=== PATIENT | male | born 1975 | race Caucasian/White ===

== ENCOUNTER → 2017-01-21 | Outpatient (CLI) | payer MEDICAID ==
[~2017-01-21] VITALS: Ht 180.3 cm; Wt 82.1 kg
[~2017-01-21] MED LIST: CEFU250T87 PO; CLIN-77 PO; CLINDAMYCIN PO; CLOT30CR23 TP; CLOTRIMAZOLE 1% 15 GM CREAM TP ONE; INSLAN SQ; LANTUS SQ; [UNRECOGNIZED DRUG - OTHER] PO
[2017-01-21 14:43] VITALS: BP 125/72
== END | disposition home or self-care (01) ==
LOC: HBOWC 13:53
PROVIDERS: ATTEND Emergency Medicine
DX: L02.414 Cutaneous abscess of left upper limb (principal); E11.9 Type 2 diabetes mellitus without complications; F32.9 Major depressive disorder, single episode, unspecified; F41.9 Anxiety disorder, unspecified; F11.10 Opioid abuse, uncomplicated; F17.200 Nicotine dependence, unspecified, uncomplicated; S81.802A Unspecified open wound, left lower leg, initial encounter; X58.XXXA Exposure to other specified factors, initial encounter; Y93.89 Activity, other specified; Y92.89 Other specified places as the place of occurrence of the external cause; Y99.8 Other external cause status
CPT/HCPCS: 97597; G0463

== ENCOUNTER → 2017-01-28 | Outpatient (CLI) | payer MEDICAID ==
[~2017-01-28] MED LIST changes: -CLINDAMYCIN PO; -CLOTRIMAZOLE 1% 15 GM CREAM TP ONE; -LANTUS SQ; -[UNRECOGNIZED DRUG - OTHER] PO
[2017-01-28 15:02] VITALS: BP 122/74
== END | disposition home or self-care (01) ==
LOC: HBOWC 14:26
PROVIDERS: ATTEND Emergency Medicine
DX: L02.414 Cutaneous abscess of left upper limb (principal); F41.9 Anxiety disorder, unspecified; F32.9 Major depressive disorder, single episode, unspecified; E11.69 Type 2 diabetes mellitus with other specified complication; B19.20 Unspecified viral hepatitis C without hepatic coma; F11.10 Opioid abuse, uncomplicated; F17.210 Nicotine dependence, cigarettes, uncomplicated; F19.20 Other psychoactive substance dependence, uncomplicated
CPT/HCPCS: 97597

== ENCOUNTER → 2017-02-04 | Outpatient (CLI) | payer MEDICAID ==
[2017-02-04 13:54] VITALS: BP 109/65
== END | disposition home or self-care (01) ==
LOC: HBOWC 13:41
PROVIDERS: ATTEND Emergency Medicine
DX: T81.89XD Other complications of procedures, not elsewhere classified, subsequent encounter (principal); E11.622 Type 2 diabetes mellitus with other skin ulcer; L97.821 Non-pressure chronic ulcer of other part of left lower leg limited to breakdown of skin; B19.20 Unspecified viral hepatitis C without hepatic coma; F41.9 Anxiety disorder, unspecified; F32.9 Major depressive disorder, single episode, unspecified; F17.210 Nicotine dependence, cigarettes, uncomplicated; F11.10 Opioid abuse, uncomplicated; Y83.8 Other surgical procedures as the cause of abnormal reaction of the patient, or of later complication, without mention of misadventure at the time of the procedure
CPT/HCPCS: 97597

== ENCOUNTER 2017-11-26 14:34 | Emergency (ER) | payer MEDICAID ==
[~2017-11-26] VITALS: Ht 177.8 cm; Wt 95.5 kg
[~2017-11-26 14:34] MED LIST changes: -CLIN-77 PO; +CLIN150C9 PO
[2017-11-26] MEDS ORDERED: METF500T6 PO (14:52)
[2017-11-26] MEDS ORDERED: SIMV-259 PO (14:52)
[2017-11-26 14:53] LABS: GLUCOSE,POINT OF CARE 385 MG/DL (70-110)
[2017-11-26] MEDS ORDERED: CEPHALEXIN MONOHYDRATE 500 MG CAPSULE PO ONE (17:00)
[2017-11-26] MEDS ORDERED: SULFAMETHOX/TRIMETH DS 800-160 MG/TABLET PO ONE (17:00)
[2017-11-26 17:46] VITALS: BP 106/70
== END 2017-11-26 17:49 | disposition home or self-care (01) ==
LOC: EMS 14:34
DX: L02.31 Cutaneous abscess of buttock (principal); E11.65 Type 2 diabetes mellitus with hyperglycemia; L03.317 Cellulitis of buttock; F17.210 Nicotine dependence, cigarettes, uncomplicated; Z79.4 Long term (current) use of insulin
CPT/HCPCS: 99283; 99406

== ENCOUNTER 2017-12-24 21:00 | Emergency (ER) | payer MEDICAID ==
[~2017-12-24] VITALS: Ht 177.8 cm; Wt 95.5 kg
[~2017-12-24 21:00] MED LIST changes: -CEFU250T87 PO; -CLIN150C9 PO; -CLOT30CR23 TP; +METF500T6 PO; +SIMV-259 PO
[2017-12-24 21:14] LABS: GLUCOSE,POINT OF CARE 210 MG/DL (70-110)
[2017-12-24] MEDS ORDERED: IBUPROFEN 800 MG TABLET PO ONE (22:15)
[2017-12-24] MEDS ORDERED: PERTUSS(ACELL),DIPH,TET VAC/PF 0.5 ML VIAL IM ONE (22:15)
[2017-12-24 23:02] VITALS: BP 145/95
== END 2017-12-24 23:04 | disposition home or self-care (01) ==
LOC: EMS 21:02
DX: S61.011A Laceration without foreign body of right thumb without damage to nail, initial encounter (principal); R03.0 Elevated blood-pressure reading, without diagnosis of hypertension; E11.9 Type 2 diabetes mellitus without complications; E78.00 Pure hypercholesterolemia, unspecified; F17.210 Nicotine dependence, cigarettes, uncomplicated; W45.8XXA Other foreign body or object entering through skin, initial encounter; Y93.89 Activity, other specified; Y92.89 Other specified places as the place of occurrence of the external cause; Y99.8 Other external cause status
CPT/HCPCS: 90471; 90715; 99284

== ENCOUNTER → 2018-03-06 | Emergency (ER) | payer MEDICAID ==
[~2018-03-06] VITALS: Ht 180.3 cm; Wt 90.5 kg
[~2018-03-06] MED LIST changes: +METF-960 PO; -METF500T6 PO
[2018-03-06 13:49] LABS: GLUCOSE,POINT OF CARE 279 MG/DL (70-110)
[2018-03-06 15:21] VITALS: BP 147/87
== END | disposition home or self-care (01) ==
LOC: EMS 13:32
DX: L02.414 Cutaneous abscess of left upper limb (principal); L03.114 Cellulitis of left upper limb; F15.10 Other stimulant abuse, uncomplicated; E11.9 Type 2 diabetes mellitus without complications; E78.00 Pure hypercholesterolemia, unspecified; F17.210 Nicotine dependence, cigarettes, uncomplicated; F11.90 Opioid use, unspecified, uncomplicated; Z79.84 Long term (current) use of oral hypoglycemic drugs; Z79.4 Long term (current) use of insulin
CPT/HCPCS: 99283

== ENCOUNTER 2018-11-03 19:39 | Emergency (ER) | payer MEDICAID ==
[~2018-11-03] VITALS: Ht 175.3 cm; Wt 86.4 kg
[2018-11-03 20:24] LABS: GLUCOSE,POINT OF CARE 336 MG/DL (70-110)
[2018-11-03 20:49] VITALS: BP 142/86
[2018-11-03] MEDS ORDERED: LIDOCAINE/PF 1% 2 ML VIAL IM ONE (21:00)
[2018-11-03] MEDS ORDERED: KETOROLAC TROMETHAMINE 60 MG/2 ML VIAL IM ONE (21:00)
[2018-11-03] MEDS ORDERED: CefTRIAXone SODIUM 1 GM/VIAL IM ONE (21:00)
== END 2018-11-03 21:53 | disposition home or self-care (01) ==
LOC: EMS 19:40
DX: L03.115 Cellulitis of right lower limb (principal); F17.210 Nicotine dependence, cigarettes, uncomplicated; E11.9 Type 2 diabetes mellitus without complications; E78.00 Pure hypercholesterolemia, unspecified; Z79.4 Long term (current) use of insulin; Z79.84 Long term (current) use of oral hypoglycemic drugs
CPT/HCPCS: 73630; 82962; 96372; 99283; 99406; J0696; J1885; J3490

== ENCOUNTER 2019-08-19 07:40 | Emergency (ER) | payer MEDICAID ==
[~2019-08-19] VITALS: Ht 167.6 cm; Wt 86.2 kg
[2019-08-19] MEDS ORDERED: VANCOMYCIN HCL 1 GM/D5% WATER 200 ML IV ONE (08:00)
[2019-08-19 08:27] LABS: BASOPHILS % (AUTO) 0.3 % (0.0-2.0); EOSINOPHILS % (AUTO) 1.9 % (1.0-6.0); HEMATOCRIT 34.6 % (41-53); HEMOGLOBIN 11.1 g/dL (13.5-17.5); LYMPHOCYTES # (AUTO) 2.8 K/uL (1.0-4.8); LYMPHOCYTES % (AUTO) 21.7 % (22.0-44.0); MEAN CORPUSCULAR HEMOGLOBIN 23.1 pg (26.0-34.0); MEAN CORPUSCULAR HGB CONC 32.1 G/dL (31.0-37.0); MEAN CORPUSCULAR VOLUME 72 fL (80-100); MONOCYTES # (AUTO) 0.9 K/uL (0.1-1.0); MONOCYTES % (AUTO) 6.9 % (2.0-9.0); NEUTROPHILS # (AUTO) 8.9 K/uL (1.8-7.7); NEUTROPHILS % (AUTO) 69.2 % (40.0-70.0); PLATELET COUNT (AUTO) 426 K/uL (150-450); RED BLOOD CELL COUNT(AUTO) 4.81 MIL/uL (4.50-5.90); RED CELL DISTRIBUTION WIDTH 15.1 % (11.5-14.5)
[2019-08-19] MEDS ORDERED: ACETAMINOPHEN 500 MG TABLET PO ONE (08:30)
[2019-08-19] MEDS ORDERED: KETOROLAC TROMETHAMINE 30 MG/ML VIAL IVP ONE (08:30)
[2019-08-19] MEDS ORDERED: SODIUM CHLORIDE 0.9% 1,000 ML IV ONE (08:30)
[2019-08-19 08:36] LABS: ANION GAP 7 mmol/L (8-16); CALCIUM, TOTAL 8.7 mg/dL (8.8-10.5); CARBON DIOXIDE 28 mmol/L (22-29); CHLORIDE 96 mmol/L (98-107); GLOMERULAR FILTR. RATE CALC > 60 mL/min (>60); GLUCOSE,RANDOM 167 mg/dL (70-110); POTASSIUM 3.2 mmol/L (3.5-5.1); SODIUM SERUM 131 mmol/L (136-145); UREA NITROGEN, BLOOD 14 mg/dL (7-18)
[2019-08-19 08:42] LABS: ALANINE AMINOTRANSFERASE 32 U/L (12-78); ALBUMIN 2.7 g/dL (3.4-5.0); ALKALINE PHOSPHATASE 97 U/L (46-116); ASPARTATE AMINOTRANSFERASE 37 U/L (15-37); BILIRUBIN,TOTAL 0.3 mg/dL (0.1-1.0); TOTAL PROTEIN, SERUM 8.3 g/dL (6.4-8.2)
[2019-08-19 08:44] LABS: LACTIC ACID 1.1 mmol/L (0.4-2.0)
[2019-08-19 08:53] LABS: B-TYPE NATRIURETIC PEPTIDE 13 pg/mL (0-100)
[2019-08-19] MEDS ORDERED: SODIUM CHLORIDE 0.9% 100 ML ONE (09:05)
[2019-08-19] MEDS ORDERED: IOVERSOL 350 MG/ML 100 ML VIAL ONE (09:06)
[2019-08-19] MEDS ORDERED: MORPHINE SULFATE 4 MG/ML SYRINGE IVP ONE (09:15)
[2019-08-19] MEDS ORDERED: ONDANSETRON HCL 4 MG/2 ML VIAL IVP ONE (09:15)
[2019-08-19 09:44] LABS: GLUCOSE,POINT OF CARE 161 MG/DL (70-110)
[2019-08-19] MEDS ORDERED: POTASSIUM CHLORIDE 20 MEQ ER TABLET PO ONE (09:45)
[2019-08-19 09:52] LABS: AMPHET/METH SCREEN,URINE POSITIVE (NEGATIVE); BARBITURATE SCREEN, URINE NEGATIVE (NEGATIVE); BENZODIAZEPINES SCREEN,URINE NEGATIVE (NEGATIVE); CANNABINOID SCREEN,URINE NEGATIVE (NEGATIVE); COCAINE SCREEN,URINE NEGATIVE (NEGATIVE); METHADONE SCREEN, URINE NEGATIVE (NEGATIVE); OPIATE SCREEN,URINE POSITIVE (NEGATIVE); PHENCYCLIDINE SCREEN,URINE NEGATIVE (NEGATIVE)
[2019-08-19 10:01] LABS: APPEARANCE,URINE CLEAR (CLEAR); BILIRUBIN,URINE NEGATIVE (NEGATIVE); GLUCOSE, URINE (UA) NEGATIVE (NEGATIVE); KETONES,URINE NEGATIVE (NEGATIVE); LEUKOCYTE ESTERASE ,URINE NEGATIVE (NEGATIVE); NITRATE,URINE NEGATIVE (NEGATIVE); OCCULT BLOOD,URINE NEGATIVE (NEGATIVE); PH,URINE 5.5 (5.0-8.0); PROTEIN,URINE NEGATIVE (NEGATIVE)
[2019-08-19 10:52] VITALS: BP 124/79
== END 2019-08-19 11:32 | disposition left against medical advice (07) ==
LOC: EMS 07:41
DX: L02.414 Cutaneous abscess of left upper limb (principal); F15.10 Other stimulant abuse, uncomplicated; L03.114 Cellulitis of left upper limb; E11.9 Type 2 diabetes mellitus without complications; E78.00 Pure hypercholesterolemia, unspecified; F17.210 Nicotine dependence, cigarettes, uncomplicated; Z79.4 Long term (current) use of insulin; Z79.84 Long term (current) use of oral hypoglycemic drugs; Z79.899 Other long term (current) drug therapy
CPT/HCPCS: 36415; 73201; 80053; 80307; 81003; 82962; 83605; 83880; 85025; 87040; 87070; 87077; 87186; 87205; 96374; 96375; 99285; J1885; J2270; J2405; J3370; J7030; J7050; Q9967; 96365